=== PATIENT | female | born 1965 | race Caucasian/White ===

== ENCOUNTER 2017-06-23 17:12 | Emergency (ER) | payer OTHER ==
[2017-06-23 19:04] VITALS: BP 126/73
--- NOTE | 2017-06-23 19:12 | UC ---
Complaint Female HPI - HPI Summary HPI Summary: 51 y/o female presents to the urgent care c/o urinary frequency since this morning. Pt had a UTI on 02/2017 and symptoms started the same. She has not taking anything to alleviate symptoms. Pt denies burning on urination, fever, pelvic pain, lower back pain, fever, vaginal discharge, abdominal pain, N/V/D. - History Of Current Complaint Chief Complaint: UCGU Stated Complaint: UTI Time Seen by Provider: 06/23/17 19:08 Hx Obtained From: Patient Hx Last Menstrual Period: 03/08/13 ?: No - Menopausal Onset/Duration: Gradual Onset, Lasting Hours - this morning, Still Present Timing: Constant Severity Initially: Mild Severity Currently: Mild Pain Intensity: 0 Pain Scale Used: 0-10 Numeric Aggravating Factor(s): Urination Alleviating Factor(s): Nothing Associated Signs And Symptoms: Positive: Negative. Negative: Fever, Back Pain, Vaginal Bleeding/Discharge, Genital Swelling, Genital Blisters - Risk Factors Ectopic Risk Factor: Negative Ovarian Torsion Risk Factor: Negative - Allergies/Home Medications Allergies/Adverse Reactions: Allergies Allergy/AdvReac Type Severity Reaction Status Date / Time Bacitracin [From Neosporin] Allergy Rash Verified 06/23/17 19:04 Neomycin [From Neosporin] Allergy Rash Verified 06/23/17 19:04 Polymyxin B [From Neosporin] Allergy Rash Verified 06/23/17 19:04 Sulfa Drugs Allergy Hives Verified 06/23/17 19:04 PMH/Surg Hx/FS Hx/Imm Hx Previously Healthy: Yes - Pt denies PMHX - Surgical History Surgical History: Yes Surgery Procedure, Year, and Place: APPENDECTOMY 11/2009 - Family History Known Family History: Positive: Hypertension Negative: Blood Disorder Family History: Brain cancer - Social History Occupation: Employed Full-time Lives: With Family Alcohol Use: Rare Substance Use Type: None Smoking Status (MU): Never Smoked Tobacco Review of Systems Constitutional: Negative Skin: Negative Eyes: Negative ENT: Negative Respiratory: Negative Cardiovascular: Negative Gastrointestinal: Negative Genitourinary: Dysuria, Frequency Motor: Negative Neurovascular: Negative Musculoskeletal: Negative Neurological: Negative Psychological: Negative Is Patient Immunocompromised?: No All Other Systems Reviewed And Are Negative: Yes Physical Exam Triage Information Reviewed: Yes Vital Signs: Initial Vital Signs Temp 98.6 F 06/23/17 19:01 Pulse 81 11/28/17 19:01 Resp 16 06/23/17 19:01 BP 126/73 06/23/17 19:01 Pulse Ox 100 06/23/17 19:01 - Additional Comments VITAL SIGNS: Reviewed. GENERAL: Patient is a well developed and nourished female who is sitting comfortable in the examining table. Patient is not in any acute respiratory distress. HEAD AND FACE: No signs of trauma. No ecchymosis, hematomas or skull depressions. No sinus tenderness. EYES: PERRLA, EOMI x 2, No injected conjunctiva, clear watery eyes, no nystagmus. No photophobia. EARS: Hearing grossly intact. Ear canals and tympanic membranes are within normal limits. MOUTH: pharynx with no erythema, no exudates,no palatal petechiae. no B/L tonsillar enlargement Uvula in midline. NECK: Supple, trachea is midline, no lymphadenopathy, no JVD, no carotid bruit, no c-spine tenderness, neck with full ROM. CHEST: Symmetric, no tenderness at palpation LUNGS: Clear to auscultation bilaterally. No wheezing or crackles. CVS: Regular rate and rhythm, S1 and S2 present, no murmurs or gallops appreciated. ABDOMEN: Soft, non-tender. No signs of distention. No rebound no guarding, and no masses palpated. Bowel sounds are normal. BACK:no scoliosis or lesions, non tender to palpation, No B/L CVA tenderness EXTREMITIES: FROM in all major joints, no edema, no cyanosis or clubbing. NEURO: Alert and oriented x 3. No acute neurological deficits. Speech is normal and follows commands. SKIN: Dry and warm Complaint Female Dx - Course Course Of Treatment: 51 y/o female presents to the urgent care c/o urinary frequency since this morning. Pt had a UTI on 02/2017 and symptoms started the same. She has not taking anything to alleviate symptoms. Pt denies burning on urination, fever, pelvic pain, lower back pain, fever, vaginal discharge, abdominal pain, N/V/D.Hx obtained. PE: WNL, UA ordered. UA results: Blood 3+, Leukoesterase 3+. Pt with Dysuria. Pt Rx Macrobid 100mg PO x 5 days. Pyridium 100mg PO TID x 2 days. Advised to increase fluid intake. Urine sent for culture to r/o UTI. if any abnormality Pt will be notified for further treatment. Pt advised If symptoms do not improve to return to the urgent care or f/u with PCP. Pt understood and agreed. Left the clinic ambulating. - Differential Dx/Diagnosis Differential Diagnosis/HQI/PQRI: Cervicitis, Pelvic Inflammatory Disease, Renal Colic, Sexually Transmitted Disease, Ureteral Stone, Urinary Tract Infection Provider Diagnoses: 1- Dysuria. 2-UTI Discharge - Discharge Plan Condition: Stable Disposition: HOME Prescriptions: Nitrofurantoin Monohyd Macro [Macrobid] 100 mg PO BID #10 cap Phenazopyridine TAB* [Pyridium 100 mg TAB*] 100 mg PO TID #6 tab Patient Education Materials: Urinary Tract Infection in Women (ED) Referrals: Rosy Alvarenga MD [Primary Care Provider] - If Needed Additional Instructions: 1- Please take Macrobid 100mg PO x 5 days. Pyridium 100 mg PO TID x 2 days to alleviate urinary symptoms. Increase increase fluid intake. drink cranberry juice. 2-Urine sent for culture if any abnormality, you will be notified for further treatment. 3-If symptoms do not improve please return to the urgent care or f/u with her PCP.
--- NOTE | 2017-06-25 16:12 | UC ---
Progress - Progress Note Progress Note: notify pt no UTI stop antibiotic recheck if not better (here or with her MD)
== END 2017-06-23 19:35 | disposition home or self-care (01) ==
LOC: UCEAST 17:12
DX: N39.0 Urinary tract infection, site not specified (principal); R30.0 Dysuria; Z88.3 Allergy status to other anti-infective agents; Z88.2 Allergy status to sulfonamides
CPT/HCPCS: 81003; 87086; 99212; G0463

== ENCOUNTER 2017-08-02 09:08 | Emergency (ER) | payer OTHER ==
[2017-08-02 09:56] VITALS: BP 130/84
--- NOTE | 2017-08-02 10:11 | UC ---
Respiratory Complaint HPI - HPI Summary HPI Summary: 52 YO FEMALE ILL X 1 WEEK INITIALLY SORE THROAT AND POST NASAL DRIP NOW WITH COUGH (NON PRODUCTIVE) NO F/C MYALGIAS EARLY IN WEEK NO CP OR SOB - History of Current Complaint Chief Complaint: UCRespiratory Stated Complaint: SORE THROAT COUGH Time Seen by Provider: 08/02/17 10:02 Hx Obtained From: Patient Hx Last Menstrual Period: 03/08/13 Onset/Duration: Gradual Onset, Lasting Weeks - 1 Timing: Constant Severity Initially: Mild Severity Currently: Moderate Pain Intensity: 4 Character: Cough: Nonproductive Aggravating Factors: Nothing Alleviating Factors: Nothing Associated Signs And Symptoms: Positive: Hoarseness, Sinus Discomfort - Allergies/Home Medications Allergies/Adverse Reactions: Allergies Allergy/AdvReac Type Severity Reaction Status Date / Time Bacitracin [From Neosporin] Allergy Rash Verified 08/02/17 09:56 Neomycin [From Neosporin] Allergy Rash Verified 08/02/17 09:56 Polymyxin B [From Neosporin] Allergy Rash Verified 08/02/17 09:56 Sulfa Drugs Allergy Hives Verified 08/02/17 09:56 Home Medications: Home Medications Acetaminophen [Tylenol] 650 mg PO Q6H PRN 08/02/17 [History Confirmed 08/02/17] [id number] [Nyquil Severe Cold/Flu 5-6.25-10-325 mg/15Ml] 1 liq PO DAILY PRN 08/02/17 [History Confirmed 08/02/17] ValACYclovir (*) [Valtrex 500 mg (*)] 500 mg PO DAILY 08/02/17 [History Confirmed 08/02/17] PMH/Surg Hx/FS Hx/Imm Hx Previously Healthy: Yes - Surgical History Surgical History: Yes Surgery Procedure, Year, and Place: APPENDECTOMY 11/2009 - Family History Known Family History: Positive: Hypertension Negative: Blood Disorder Family History: Brain cancer - Social History Alcohol Use: Rare Substance Use Type: None Smoking Status (MU): Never Smoked Tobacco - Immunization History Most Recent Influenza Vaccination: May 2017 Review of Systems Constitutional: Fatigue Skin: Negative Eyes: Negative ENT: Sinus Pain/Tenderness Respiratory: Cough Cardiovascular: Negative Gastrointestinal: Negative Genitourinary: Negative Motor: Negative Neurovascular: Negative Musculoskeletal: Negative Neurological: Negative Psychological: Negative Is Patient Immunocompromised?: No All Other Systems Reviewed And Are Negative: Yes Physical Exam Triage Information Reviewed: Yes Appearance: Well-Appearing, No Pain Distress, Well-Nourished Vital Signs: Initial Vital Signs Temp 98.2 F 08/02/17 09:53 Pulse 89 08/02/17 09:53 Resp 16 08/02/17 09:53 BP 130/84 08/02/17 09:53 Pulse Ox 100 08/02/17 09:53 Vital Signs Reviewed: Yes Eyes: Positive: Conjunctiva Clear ENT: Positive: Hearing grossly normal, Pharyngeal erythema, TMs normal, Hoarse voice, Sinus tenderness - RIGHT MAX, Uvula midline. Negative: Tonsillar swelling, Tonsillar exudate, Trismus, Muffled voice, Dental tenderness Dental Exam: Normal Neck: Positive: Supple, Nontender, Enlarged Nodes @ - ANT CERV Respiratory: Positive: Lungs clear, Normal breath sounds, No respiratory distress Cardiovascular: Positive: RRR, No Murmur Musculoskeletal: Positive: ROM Intact, No Edema Neurological: Positive: Alert Skin Exam: Normal UC Diagnostic Evaluation - Laboratory O2 Sat by Pulse Oximetry: 100 - NORMAL/NOT HYPOXIC Respiratory Course/Dx - Differential Dx/Diagnosis Provider Diagnoses: ACUTE SINUSITIS. PHARYNGITIS Discharge - Discharge Plan Condition: Stable Disposition: HOME Prescriptions: Amoxicillin PO (*) [Amoxicillin 875 MG (*)] 875 mg PO BID #20 tab Benzonatate CAP* [Tessalon CAP*] 100 - 200 mg PO TID PRN #28 cap PRN Reason: Cough Patient Education Materials: Sinusitis (ED) Referrals: Rosy Alvarenga MD [Primary Care Provider] - 5 Days (IF NOT BETTER)
== END 2017-08-02 10:18 | disposition home or self-care (01) ==
LOC: UCEAST 09:08
DX: J01.90 Acute sinusitis, unspecified (principal); J02.9 Acute pharyngitis, unspecified; Z88.3 Allergy status to other anti-infective agents; Z88.2 Allergy status to sulfonamides
CPT/HCPCS: 99202; G0463

== ENCOUNTER 2018-05-16 09:32 | Emergency (ER) | payer OTHER ==
[2018-05-16 10:24] VITALS: BP 133/79
--- NOTE | 2018-05-16 10:49 | UC ---
Hand/Wrist HPI - HPI Summary HPI Summary: Patient is 52 year old female , without any significant past medical history who present today with right wrist pain for past 4 days days. She reports that she was at [facility] for vacation where she slipped on 05/12/18 and fell on her outstretched hand(foosh injury). She did not seek any medical care there. She denies any prior injuries to her right wrist. Pain is mainly located at the wrist on the radial aspect with limited and painful range of motion with associated swelling - History Of Current Complaint Chief Complaint: UCUpperExtremity Stated Complaint: WRIST INJURY Time Seen by Provider: 05/16/18 10:33 Hx Obtained From: Patient Hx Last Menstrual Period: 03/08/13 ?: No - postmenopausal Pain Intensity: 5 - Allergies/Home Medications Allergies/Adverse Reactions: Allergies Allergy/AdvReac Type Severity Reaction Status Date / Time bacitracin Allergy Rash Verified 05/16/18 10:25 [From Neosporin ([id number])] neomycin Allergy Rash Verified 05/16/18 10:25 [From Neosporin ([id number])] polymyxin B Allergy Rash Verified 05/16/18 10:25 [From Neosporin ([id number])] Sulfa (Sulfonamide Allergy Hives Verified 05/16/18 10:25 Antibiotics) Home Medications: Home Medications Naproxen Sodium [Aleve] 220 mg PO 05/16/18 [History] PMH/Surg Hx/FS Hx/Imm Hx - Additional Past Medical History Additional PMH: Denies any past medical history Previously Healthy: Yes Other Endocrine History: negative Other Cardiovascular History: negative Other Respiratory History: negative Other GI/ History: negative Other Neurological History: negative Other Psychological History: negative Other Cancer History: negative - Surgical History Surgical History: Yes Surgery Procedure, Year, and Place: APPENDECTOMY 11/2009 - Family History Known Family History: Positive: Hypertension Negative: Blood Disorder Family History: Brain cancer - Social History Alcohol Use: Occasionally Substance Use Type: None Smoking Status (MU): Never Smoked Tobacco - Immunization History Most Recent Influenza Vaccination: May 2017 Review of Systems Constitutional: Negative Skin: Negative Eyes: Negative ENT: Negative Respiratory: Negative Cardiovascular: Negative Gastrointestinal: Negative Genitourinary: Negative Motor: Negative Musculoskeletal: Arthralgia - Right wrist joint, Decreased ROM - Right wrist joint, Edema - Swelling of the right wrist Neurological: Negative Psychological: Negative Is Patient Immunocompromised?: No All Other Systems Reviewed And Are Negative: Yes Physical Exam - Summary Physical Exam Summary: Physical Exam: Const: Appears well. No signs of apparent distress present. Alert and oriented x 3. Musculo: Walks with a normal gait. Head/Face: Atraumatic, normocephalic on inspection. Eyes: EOMI and PERRLA in both eyes. Conjunctivae clear. No discharge noted ENT: Hearing normal, TM normal appearing bilaterally . Respiratory: Respirations are unlabored. Lungs clear to auscultation bilaterally, no wheezing , rhonchi or rales noted . CVS: Regular rate and Rhythm, S1S2 normal , no murmurs identified. Extremities: Peripheral circulation is grossly normal. Pulses 2+ Abdomen : Soft non tender , nondistended , Bowel sounds present . No guarding , rebound tenderness or rigidity noted. Skin: No lesions or rash located on the upper extremities or on the lower extremities. Neuro: Cranial nerves II to XII intact, motor and sensory intact. DTR Intact bilaterally. Mood is normal. Affect is normal. Right Wrist: Insp/Palp: Skin is warm, dry, and intact. no ecchymosis, there is dorsal swelling appreciated.Tenderness to palpation noted on the distal radius.No tenderness over the CMC joint, Anatomical snuff box or triangular fibrocartilage complex. ROM: Limited and painful range of motion Strength: 4+/5 Neuro: Sensory intact, pulses 2+ Triage Information Reviewed: Yes Vital Signs: Initial Vital Signs Temp 98.7 F 05/16/18 10:20 Pulse 79 05/16/18 10:20 Resp 18 05/16/18 10:20 BP 133/79 05/16/18 10:20 Pulse Ox 100 05/16/18 10:20 Vital Signs Reviewed: Yes Diagnostics - Laboratory Diagnostic Studies Completed/Ordered: X-ray of the right wrist read by the ED physician and the radiologist:NONDISPLACED FRACTURE OF THE DISTAL RADIAL METAPHYSIS. Hand/Wrist Course/Dx - Course Course Of Treatment: During the visit today, we obtained right wrist x-rays : NONDISPLACED FRACTURE OF THE DISTAL RADIAL METAPHYSIS(final read). We discussed the findings and further plan with options of sugar tong splint cast and sling versus a thumb spica and she opted to proceed with the thumb spica splint. She will will follow up with orthopedics. Patient expressed understanding . - Differential Dx/Diagnosis Provider Diagnoses: NONDISPLACED FRACTURE OF THE DISTAL RADIAL METAPHYSIS. Discharge - Sign-Out/Discharge Documenting (check all that apply): Patient Departure All imaging exams completed and their final reports reviewed: Yes - Discharge Plan Condition: Stable Disposition: HOME Patient Education Materials: Wrist Fracture in Adults (ED) Referrals: Rosy Alvarenga MD [Primary Care Provider] - Elias López MD [Medical Doctor] - 2 Days Additional Instructions: Please take ibuprofen as needed for pain control Follow up with orthopedics within 2 days. Return to Urgent care / ER if symptoms get worse. - Billing Disposition and Condition Condition: STABLE Disposition: Home
--- NOTE | 2018-05-16 11:26 | RAD ---
HISTORY: FOOSH injury of right wrist COMPARISONS: None VIEWS: 3 , Frontal, lateral, and oblique views of the right wrist FINDINGS: BONE DENSITY: Normal. BONES: There is a transverse nondisplaced fracture of the distal radial metaphysis. JOINTS: There is no arthropathy. ALIGNMENT: There is no dislocation. SOFT TISSUES: Unremarkable. OTHER FINDINGS: None. IMPRESSION: NONDISPLACED FRACTURE OF THE DISTAL RADIAL METAPHYSIS.
== END 2018-05-16 11:45 | disposition home or self-care (01) ==
LOC: UCEAST 09:32
DX: S52.501A Unspecified fracture of the lower end of right radius, initial encounter for closed fracture (principal); W01.0XXA Fall on same level from slipping, tripping and stumbling without subsequent striking against object, initial encounter; Y92.9 Unspecified place or not applicable; Z88.3 Allergy status to other anti-infective agents; Z88.2 Allergy status to sulfonamides
CPT/HCPCS: 99212; G0463